=== PATIENT | male | born 1945 | race Caucasian/White ===

== ENCOUNTER 2021-02-02 11:29 | Inpatient (IN) ==
[2021-02-02] MEDS ORDERED: *HR* Propofol 200 MG/20 ML VIAL IVP ONE (11:46)
[2021-02-02] MEDS ORDERED: *HR* FentaNYL (PF) 100 MCG/2 ML VIAL ONE ×2 (11:47→13:55)
[2021-02-02] MEDS ORDERED: Clindamycin 900 MG/50 ML 900 MG/50 ML IV.SOLN IVPB ONE (11:48)
[2021-02-02] MEDS ORDERED: Lidocaine -MPF 2% 2 ML VIAL ONE (11:57)
[2021-02-02] MEDS ORDERED: *HR* Rocuronium Bromide 50 MG/5 ML VIAL ONE ×2 (11:57→14:05)
[2021-02-02] MEDS ORDERED: Ondansetron 4 MG/2 ML VIAL ONE (11:57)
[2021-02-02] MEDS ORDERED: Ringers Solution, Lactated 1,000 ML IVC SCH (12:00)
[2021-02-02] MEDS ORDERED: *HR* OxyCODONE Immed Rel 5 MG TABLET PO PRN (12:09)
[2021-02-02] MEDS ORDERED: *HR* HYDROmorphone PF 0.5 MG/0.5 ML SYRINGE IVP PRN (12:09)
[2021-02-02] MEDS ORDERED: Ondansetron 4 MG/2 ML VIAL IVP PRN ×2 (12:09→17:55)
[2021-02-02] MEDS ORDERED: Heparin 1,000 UNITS/500 mL 500 ML ONE (12:44)
[2021-02-02] MEDS ORDERED: *HR* HYDROMORPHONE 2 MG/ML VIAL ONE (14:38)
[2021-02-02] MEDS ORDERED: Sugammadex Sodium 200 MG/2 ML VIAL IV ONE (15:16)
[2021-02-02] MEDS ORDERED: Naloxone 0.4 MG/ML INJ IVP PRN (17:55)
[2021-02-02] MEDS: 0.9 % Sodium Chloride 1,000 ML IVC SCH (19:59)
[2021-02-02] MEDS: Ketorolac 15 MG/ML VIAL IVP SCH (20:07)
[2021-02-02] MEDS: Gabapentin 300 MG CAPSULE PO SCH (20:13)
[2021-02-02] MEDS: Famotidine 20 MG TABLET PO SCH (20:14)
[2021-02-02] MEDS: Sennosides/Docusate Sodium TABLET PO SCH (20:14)
[2021-02-02] MEDS: Ipratropium/Albuterol Neb 3 ML IH SCH ×2 (20:28→20:37)
[2021-02-02] MEDS: *HR* Heparin 5,000 UNIT/ML VIAL SQ SCH (21:33)
[2021-02-03] MEDS: Ketorolac 15 MG/ML VIAL IVP SCH ×4 (00:05→17:25)
[2021-02-03] MEDS: Ipratropium/Albuterol Neb 3 ML IH SCH ×6 (00:10→20:17)
[2021-02-03 02:53] LABS: Hematocrit 27.2 % (37.5-50.1); Hemoglobin 8.9 g/dL (12.9-16.9); Mean Corpuscular HGB Conc 32.7 g/dL (31.6-35.5); Mean Corpuscular Hemoglobin 33.1 pg (28.0-33.3); Mean Corpuscular Volume 101.1 fL (83.0-100.0); Mean Platelet Volume 8.5 fL (9.4-12.4); Platelet Count 148 K/mcL (140-400); Red Blood Count 2.69 M/mcL (4.19-5.50); Red Cell Distribution Width 18.1 % (11.5-14.5); White Blood Count 7.4 K/mcL (4.3-11.1)
[2021-02-03 03:12] LABS: BUN/Creatinine Ratio 25 (6-26); Blood Urea Nitrogen 26 mg/dL (8-23); Calcium 8.4 mg/dL (8.6-10.3); Carbon Dioxide 22 mEq/L (23-29); Chloride 105 mEq/L (98-107); Glucose 131 mg/dL (70-105); Iron 23 mcg/dL (65-175); Osmolality,Calculated 287 (280-300); Potassium 4.2 mEq/L (3.5-5.1); Sodium 135 mEq/L (136-145); eGFR For African Americans > 60 (> 60); eGFR For Non-African Americans > 60 (> 60)
[2021-02-03 03:58] LABS: % Iron Saturation 9 % (20-55); Transferrin 190 mg/dL (203-362)
[2021-02-03] MEDS: *HR* Heparin 5,000 UNIT/ML VIAL SQ SCH ×3 (05:32→20:03)
[2021-02-03] MEDS: Sennosides/Docusate Sodium TABLET PO SCH ×2 (07:25→20:11)
[2021-02-03] MEDS: Gabapentin 300 MG CAPSULE PO SCH ×3 (07:25→20:11)
[2021-02-03] MEDS: Famotidine 20 MG TABLET PO SCH ×2 (07:25→20:11)
[2021-02-03] MEDS: Aspirin Enteric Coated 81 MG Tablet PO SCH (07:25)
[2021-02-03] MEDS: 0.9 % Sodium Chloride 1,000 ML IVC SCH ×2 (07:26→17:25)
[2021-02-03] MEDS ORDERED: Acetaminophen 325 MG TABLET PO PRN (09:06)
[2021-02-03] MEDS ORDERED: Albumin Human 5% 12.5 GM/250 ML IV.SOLN IVPB ONE (09:07)
[2021-02-03] MEDS ORDERED: Thiamine (B-1) 100 MG, Folic Acid 1 MG in 0.9 % Sodium Chloride 50 ML IVPB ONE (09:22)
[2021-02-03] MEDS ORDERED: Folic Acid 1 MG in 0.9 % Sodium Chloride 50 ML IVPB ONE (09:22)
[2021-02-03] MEDS ORDERED: Iron Sucrose Complex 400 MG in 0.9 % Sodium Chloride 250 ML IVPB ONE (10:00)
[2021-02-03] MEDS ORDERED: DESMOPRESSIN ACETATE IVPB ONE (13:20)
[2021-02-03] MEDS ORDERED: SODIUM CHLORIDE 0.9% IVPB ONE (13:20)
[2021-02-03 13:57] LABS: Hematocrit 25.7 % (37.5-50.1); Hemoglobin 8.2 g/dL (12.9-16.9); Mean Corpuscular HGB Conc 31.9 g/dL (31.6-35.5); Mean Corpuscular Hemoglobin 33.3 pg (28.0-33.3); Mean Corpuscular Volume 104.5 fL (83.0-100.0); Mean Platelet Volume 8.7 fL (9.4-12.4); Platelet Count 167 K/mcL (140-400); Red Blood Count 2.46 M/mcL (4.19-5.50); Red Cell Distribution Width 18.4 % (11.5-14.5); White Blood Count 10.3 K/mcL (4.3-11.1)
[2021-02-03] MEDS: *HR* HYDROcodone/Acet 5/325 mg TABLET PO PRN ×2 (15:25→21:58)
[2021-02-04] MEDS: Ipratropium/Albuterol Neb 3 ML IH SCH ×6 (00:21→21:40)
[2021-02-04] MEDS: Ketorolac 15 MG/ML VIAL IVP SCH ×4 (00:33→17:20)
[2021-02-04 02:38] LABS: Hematocrit 22.7 % (37.5-50.1); Hemoglobin 7.1 g/dL (12.9-16.9); Mean Corpuscular HGB Conc 31.3 g/dL (31.6-35.5); Mean Corpuscular Hemoglobin 32.6 pg (28.0-33.3); Mean Corpuscular Volume 104.1 fL (83.0-100.0); Mean Platelet Volume 8.8 fL (9.4-12.4); Platelet Count 115 K/mcL (140-400); Red Blood Count 2.18 M/mcL (4.19-5.50); Red Cell Distribution Width 18.7 % (11.5-14.5); White Blood Count 6.4 K/mcL (4.3-11.1)
[2021-02-04 02:50] LABS: BUN/Creatinine Ratio 25 (6-26); Blood Urea Nitrogen 27 mg/dL (8-23); Calcium 7.9 mg/dL (8.6-10.3); Carbon Dioxide 22 mEq/L (23-29); Chloride 108 mEq/L (98-107); Glucose 103 mg/dL (70-105); Osmolality,Calculated 291 (280-300); Potassium 4.1 mEq/L (3.5-5.1); Sodium 138 mEq/L (136-145); eGFR For African Americans > 60 (> 60); eGFR For Non-African Americans > 60 (> 60)
[2021-02-04] MEDS: *HR* Heparin 5,000 UNIT/ML VIAL SQ SCH (05:06)
[2021-02-04] MEDS: 0.9 % Sodium Chloride 1,000 ML IVC SCH (07:30)
[2021-02-04] MEDS: Famotidine 20 MG TABLET PO SCH ×2 (07:52→20:45)
[2021-02-04] MEDS: Aspirin Enteric Coated 81 MG Tablet PO SCH (07:53)
[2021-02-04] MEDS: Sennosides/Docusate Sodium TABLET PO SCH ×2 (07:53→20:45)
[2021-02-04] MEDS: Gabapentin 300 MG CAPSULE PO SCH ×3 (07:53→20:45)
[2021-02-04] MEDS ORDERED: Ondansetron ODT 4 MG TAB.RAPDIS SL PRN (18:12)
[2021-02-04] MEDS: *HR* HYDROcodone/Acet 5/325 mg TABLET PO PRN (22:02)
[2021-02-05] MEDS: Ipratropium/Albuterol Neb 3 ML IH SCH ×4 (03:28→21:04)
[2021-02-05 03:48] LABS: Hematocrit 20.2 % (37.5-50.1); Hemoglobin 6.3 g/dL (12.9-16.9); Mean Corpuscular HGB Conc 31.2 g/dL (31.6-35.5); Mean Corpuscular Hemoglobin 32.1 pg (28.0-33.3); Mean Corpuscular Volume 103.1 fL (83.0-100.0); Mean Platelet Volume 8.6 fL (9.4-12.4); Platelet Count 114 K/mcL (140-400); Red Blood Count 1.96 M/mcL (4.19-5.50); Red Cell Distribution Width 18.7 % (11.5-14.5)
[2021-02-05 04:02] LABS: BUN/Creatinine Ratio 23 (6-26); Blood Urea Nitrogen 21 mg/dL (8-23); Calcium 7.9 mg/dL (8.6-10.3); Carbon Dioxide 23 mEq/L (23-29); Chloride 107 mEq/L (98-107); Glucose 96 mg/dL (70-105); Osmolality,Calculated 283 (280-300); Potassium 4.2 mEq/L (3.5-5.1); Sodium 135 mEq/L (136-145); eGFR For African Americans > 60 (> 60); eGFR For Non-African Americans > 60 (> 60)
[2021-02-05] MEDS: Sennosides/Docusate Sodium TABLET PO SCH ×2 (08:12→20:26)
[2021-02-05] MEDS: Gabapentin 300 MG CAPSULE PO SCH ×3 (08:13→20:26)
[2021-02-05] MEDS: Famotidine 20 MG TABLET PO SCH ×2 (08:13→20:27)
[2021-02-05] MEDS: Aspirin Enteric Coated 81 MG Tablet PO SCH ×2 (08:15→10:20)
[2021-02-05] MEDS ORDERED: 0.9 % Sodium Chloride 250 ML ONE ×2 (08:24→11:35)
[2021-02-05] MEDS ORDERED: Furosemide 20 MG TABLET PO ONE (09:11)
[2021-02-05] MEDS: Ketorolac 15 MG/ML VIAL IVP SCH ×3 (10:48→23:41)
[2021-02-05] MEDS: *HR* HYDROcodone/Acet 5/325 mg TABLET PO PRN (22:13)
[2021-02-06] MEDS: Ipratropium/Albuterol Neb 3 ML IH SCH ×4 (04:23→22:46)
[2021-02-06 04:42] LABS: Hematocrit 26.6 % (37.5-50.1); Mean Corpuscular HGB Conc 32.7 g/dL (31.6-35.5); Mean Corpuscular Hemoglobin 31.8 pg (28.0-33.3); Mean Corpuscular Volume 97.1 fL (83.0-100.0); Mean Platelet Volume 8.7 fL (9.4-12.4); Platelet Count 111 K/mcL (140-400); Red Blood Count 2.74 M/mcL (4.19-5.50); Red Cell Distribution Width 20.6 % (11.5-14.5); White Blood Count 5.4 K/mcL (4.3-11.1)
[2021-02-06 04:43] LABS: Hemoglobin 8.7 g/dL (12.9-16.9)
[2021-02-06 05:01] LABS: BUN/Creatinine Ratio 24 (6-26); Blood Urea Nitrogen 21 mg/dL (8-23); Calcium 8.2 mg/dL (8.6-10.3); Carbon Dioxide 25 mEq/L (23-29); Chloride 106 mEq/L (98-107); Glucose 101 mg/dL (70-105); Magnesium 1.9 mg/dL (1.6-2.6); Osmolality,Calculated 283 (280-300); Potassium 4.4 mEq/L (3.5-5.1); Sodium 135 mEq/L (136-145); eGFR For African Americans > 60 (> 60); eGFR For Non-African Americans > 60 (> 60)
[2021-02-06] MEDS: Ketorolac 15 MG/ML VIAL IVP SCH ×3 (05:23→17:49)
[2021-02-06] MEDS: Gabapentin 300 MG CAPSULE PO SCH ×3 (08:19→20:29)
[2021-02-06] MEDS: Aspirin Enteric Coated 81 MG Tablet PO SCH (08:19)
[2021-02-06] MEDS: Sennosides/Docusate Sodium TABLET PO SCH ×2 (08:19→20:29)
[2021-02-06] MEDS: Famotidine 20 MG TABLET PO SCH ×2 (08:19→20:29)
[2021-02-06] MEDS: *HR* HYDROcodone/Acet 5/325 mg TABLET PO PRN (22:52)
[2021-02-07] MEDS: Ketorolac 15 MG/ML VIAL IVP SCH ×4 (00:04→17:11)
[2021-02-07] MEDS: Ipratropium/Albuterol Neb 3 ML IH SCH ×4 (04:13→22:07)
[2021-02-07 07:34] LABS: BUN/Creatinine Ratio 24 (6-26); Blood Urea Nitrogen 25 mg/dL (8-23); Calcium 8.4 mg/dL (8.6-10.3); Carbon Dioxide 24 mEq/L (23-29); Chloride 107 mEq/L (98-107); Glucose 98 mg/dL (70-105); Osmolality,Calculated 286 (280-300); Potassium 4.6 mEq/L (3.5-5.1); Sodium 136 mEq/L (136-145); eGFR For African Americans > 60 (> 60); eGFR For Non-African Americans > 60 (> 60)
[2021-02-07] MEDS: Gabapentin 300 MG CAPSULE PO SCH ×3 (07:35→20:37)
[2021-02-07] MEDS: Famotidine 20 MG TABLET PO SCH ×2 (07:35→20:37)
[2021-02-07] MEDS: Sennosides/Docusate Sodium TABLET PO SCH ×2 (07:35→20:37)
[2021-02-07] MEDS: Aspirin Enteric Coated 81 MG Tablet PO SCH (07:35)
[2021-02-07 09:14] LABS: Hematocrit 30.8 % (37.5-50.1); Hemoglobin 9.8 g/dL (12.9-16.9); Mean Corpuscular HGB Conc 31.8 g/dL (31.6-35.5); Mean Corpuscular Hemoglobin 31.9 pg (28.0-33.3); Mean Corpuscular Volume 100.3 fL (83.0-100.0); Mean Platelet Volume 8.7 fL (9.4-12.4); Platelet Count 136 K/mcL (140-400); Red Blood Count 3.07 M/mcL (4.19-5.50); Red Cell Distribution Width 20.4 % (11.5-14.5); White Blood Count 5.8 K/mcL (4.3-11.1)
[2021-02-07] MEDS: *HR* HYDROcodone/Acet 5/325 mg TABLET PO PRN (22:22)
[2021-02-08] MEDS: Ipratropium/Albuterol Neb 3 ML IH SCH ×2 (03:51→09:55)
[2021-02-08 05:29] LABS: Hematocrit 30.7 % (37.5-50.1); Hemoglobin 9.9 g/dL (12.9-16.9); Mean Corpuscular HGB Conc 32.2 g/dL (31.6-35.5); Mean Corpuscular Hemoglobin 31.9 pg (28.0-33.3); Mean Platelet Volume 8.7 fL (9.4-12.4); Platelet Count 144 K/mcL (140-400); White Blood Count 6.6 K/mcL (4.3-11.1)
[2021-02-08 05:48] LABS: BUN/Creatinine Ratio 27 (6-26); Blood Urea Nitrogen 25 mg/dL (8-23); Calcium 8.5 mg/dL (8.6-10.3); Carbon Dioxide 24 mEq/L (23-29); Chloride 105 mEq/L (98-107); Glucose 96 mg/dL (70-105); Magnesium 1.9 mg/dL (1.6-2.6); Osmolality,Calculated 286 (280-300); Potassium 4.3 mEq/L (3.5-5.1); Sodium 136 mEq/L (136-145); eGFR For African Americans > 60 (> 60); eGFR For Non-African Americans > 60 (> 60)
[2021-02-08] MEDS: Famotidine 20 MG TABLET PO SCH (08:38)
[2021-02-08] MEDS: Sennosides/Docusate Sodium TABLET PO SCH (08:38)
[2021-02-08] MEDS: Aspirin Enteric Coated 81 MG Tablet PO SCH (08:38)
[2021-02-08] MEDS: Gabapentin 300 MG CAPSULE PO SCH (08:39)
[2021-02-08 11:54] VITALS: TEMP 97.8
[2021-02-08 12:19] VITALS: BP 109/70; PULSE 98; O2SAT 99
== END 2021-02-08 13:07 | disposition home or self-care (01) | DRG 164 ==
LOC: SAMDAY 11:29 → 2NNU 12:20
PROVIDERS: ADMIT Thoracic Surgery (Cardiothoracic Vascular Surgery); ATTEND Thoracic Surgery (Cardiothoracic Vascular Surgery)

== ENCOUNTER 2021-09-06 08:45 | Inpatient (IN) ==
[2021-09-06] MEDS ORDERED: Albuterol 2.5 MG/3 ML NEBULIZER IH ONE (09:31)
[2021-09-06] MEDS ORDERED: Ipratropium/Albuterol Neb 3 ML IH ONE (09:31)
[2021-09-06 10:10] LABS: Basophils % 0.3 %; Eosinophils % 0.3 %; Hematocrit 34.5 % (37.5-50.1); Hemoglobin 10.9 g/dL (12.9-16.9); Immature Granulocytes % 0.5 % (0-4); Lymphocytes # 0.5 K/mcL (0.6-4.6); Lymphocytes % 4.1 %; Mean Corpuscular HGB Conc 31.6 g/dL (31.6-35.5); Mean Platelet Volume 8.1 fL (9.4-12.4); Monocytes # 0.5 K/mcL (0.0-1.3); Monocytes % 4.4 %; Neutrophils # 9.9 K/mcL (1.6-8.9); Platelet Count 267 K/mcL (140-400); Red Blood Count 3.63 M/mcL (4.19-5.50); Red Cell Distribution Width 14.1 % (11.5-14.5); Segmented Neutrophils % 90.4 %
[2021-09-06 10:12] LABS: VBG HCO3 26 mEq/L (21-27); VBG PCO2 41 mmHg (41-51); VBG PH 7.41 pH Units (7.32-7.42); VBG PO2 29 mmHg (25-50)
[2021-09-06 10:18] LABS: Troponin I 0.05 ng/mL (< 0.04)
[2021-09-06 10:34] LABS: BUN/Creatinine Ratio 17 (6-26); Blood Urea Nitrogen 15 mg/dL (8-23); Calcium 8.4 mg/dL (8.6-10.3); Carbon Dioxide 28 mEq/L (23-29); Chloride 98 mEq/L (98-107); Glucose 96 mg/dL (70-105); Osmolality,Calculated 281 (280-300); Potassium 4.1 mEq/L (3.5-5.1); Sodium 135 mEq/L (136-145); eGFR For African Americans > 60 (> 60); eGFR For Non-African Americans > 60 (> 60)
[2021-09-06] MEDS ORDERED: Ondansetron 4 MG/2 ML VIAL IVP PRN (11:39)
[2021-09-06] MEDS: Megestrol Acetate 400 MG/10 ML UDC PO SCH (13:12)
[2021-09-06] MEDS: 0.9 % Sodium Chloride 1,000 ML IVC SCH (13:12)
[2021-09-06] MEDS: Sennosides/Docusate Sodium TABLET PO SCH (19:48)
[2021-09-06] MEDS: Melatonin 3 MG TABLET PO SCH (22:25)
[2021-09-06] MEDS: Famotidine 20 MG TABLET PO SCH (22:25)
[2021-09-07 02:21] LABS: Hematocrit 31.7 % (37.5-50.1); Hemoglobin 9.8 g/dL (12.9-16.9); Mean Corpuscular HGB Conc 30.9 g/dL (31.6-35.5); Mean Corpuscular Hemoglobin 29.4 pg (28.0-33.3); Mean Corpuscular Volume 95.2 fL (83.0-100.0); Mean Platelet Volume 8.4 fL (9.4-12.4); Platelet Count 237 K/mcL (140-400); Red Blood Count 3.33 M/mcL (4.19-5.50); Red Cell Distribution Width 14.4 % (11.5-14.5); White Blood Count 8.4 K/mcL (4.3-11.1)
[2021-09-07 02:43] LABS: BUN/Creatinine Ratio 16 (6-26); Blood Urea Nitrogen 16 mg/dL (8-23); Calcium 8.2 mg/dL (8.6-10.3); Carbon Dioxide 27 mEq/L (23-29); Chloride 102 mEq/L (98-107); Glucose 108 mg/dL (70-105); Magnesium 2.1 mg/dL (1.6-2.6); Osmolality,Calculated 284 (280-300); Potassium 3.6 mEq/L (3.5-5.1); Sodium 136 mEq/L (136-145); eGFR For African Americans > 60 (> 60); eGFR For Non-African Americans > 60 (> 60)
[2021-09-07] MEDS: 0.9 % Sodium Chloride 1,000 ML IVC SCH ×2 (03:04→18:06)
[2021-09-07] MEDS ORDERED: Perflutren Lipid Microsphere 1.3 ML in 0.9 % Sodium Chloride 8.7 ML IVP PRN (08:11)
[2021-09-07] MEDS: Famotidine 20 MG TABLET PO SCH ×2 (08:54→19:52)
[2021-09-07] MEDS: Megestrol Acetate 400 MG/10 ML UDC PO SCH (08:54)
[2021-09-07] MEDS: Sennosides/Docusate Sodium TABLET PO SCH ×2 (08:55→19:52)
[2021-09-07] MEDS: *HR* HYDROcodone/Acet 5/325 mg TABLET PO PRN ×3 (11:56→22:43)
[2021-09-07] MEDS: Metoprolol XL (24 HR) Succ 25 MG TAB.ER.24H PO SCH (19:52)
[2021-09-07] MEDS: Melatonin 3 MG TABLET PO SCH (19:52)
[2021-09-08] MEDS ORDERED: Regadenoson 0.4 MG/5 ML SYRINGE IVP ONE (06:03)
[2021-09-08] MEDS ORDERED: *HR* Propofol 200 MG/20 ML VIAL IVP ONE (08:52)
[2021-09-08] MEDS ORDERED: *HR* Succinylcholine 200 MG/10 ML VIAL IVP ONE (08:52)
[2021-09-08] MEDS ORDERED: Lidocaine -MPF 2% 5 ML VIAL ONE (08:52)
[2021-09-08] MEDS ORDERED: Ondansetron 4 MG/2 ML VIAL ONE (08:52)
[2021-09-08] MEDS ORDERED: Lidocaine -MPF 4% 5 ML AMPUL ONE (08:52)
[2021-09-08] MEDS ORDERED: Lidocaine Jelly 11 ml Syringe ONE (09:04)
[2021-09-08] MEDS ORDERED: *HR* Norepinephrine 4 MG/4 ML VIAL IVC ONE (09:04)
[2021-09-08] MEDS ORDERED: *HR* Vasopressin 20 UNIT/ML VIAL ONE (09:04)
[2021-09-08] MEDS ORDERED: *HR* FentaNYL (PF) 100 MCG/2 ML VIAL IVP PRN (10:01)
[2021-09-08] MEDS ORDERED: *HR* Remifentanil 1 MG VIAL IVP ONE (10:03)
[2021-09-08] MEDS ORDERED: *HR* FentaNYL (PF) 100 MCG/2 ML VIAL ONE ×2 (10:09→11:53)
[2021-09-08] MEDS: Famotidine 20 MG TABLET PO SCH ×2 (11:32→20:30)
[2021-09-08] MEDS: Megestrol Acetate 400 MG/10 ML UDC PO SCH (11:32)
[2021-09-08] MEDS: Metoprolol XL (24 HR) Succ 25 MG TAB.ER.24H PO SCH ×2 (11:35→20:30)
[2021-09-08] MEDS: 0.9 % Sodium Chloride 1,000 ML IVC SCH ×2 (11:36→18:29)
[2021-09-08] MEDS: Sennosides/Docusate Sodium TABLET PO SCH ×2 (11:36→20:30)
[2021-09-08] MEDS ORDERED: Nitroglycerin 1,000 MCG/5 ML VIAL IV ONE (11:45)
[2021-09-08] MEDS ORDERED: ISOVUE-370 200 ML INFUS..BTL ONE (11:45)
[2021-09-08] MEDS ORDERED: *HR* Heparin 10,000 UNIT/10 ML VIAL ONE (11:45)
[2021-09-08] MEDS ORDERED: Heparin 1,000 UNITS/500 mL 500 ML ONE (11:45)
[2021-09-08] MEDS ORDERED: 0.9 % Sodium Chloride 1,000 ML ONE ×2 (11:45→11:55)
[2021-09-08] MEDS ORDERED: *HR* Midazolam HCl 2 MG/2 ML VIAL ONE (11:53)
[2021-09-08 16:31] LABS: Basophils % 0.2 %; Eosinophils % 1.4 %; Hematocrit 31.4 % (37.5-50.1); Hemoglobin 9.7 g/dL (12.9-16.9); Immature Granulocytes % 0.5 % (0-4); Lymphocytes % 7.4 %; Mean Corpuscular HGB Conc 30.9 g/dL (31.6-35.5); Mean Corpuscular Hemoglobin 29.8 pg (28.0-33.3); Mean Corpuscular Volume 96.6 fL (83.0-100.0); Mean Platelet Volume 8.2 fL (9.4-12.4); Monocytes % 4.5 %; Platelet Count 241 K/mcL (140-400); Red Blood Count 3.25 M/mcL (4.19-5.50); Red Cell Distribution Width 14.5 % (11.5-14.5); White Blood Count 8.7 K/mcL (4.3-11.1)
[2021-09-08 16:32] LABS: Eosinophils # 0.1 K/mcL (0.0-0.6); Lymphocytes # 0.6 K/mcL (0.6-4.6); Monocytes # 0.4 K/mcL (0.0-1.3); Neutrophils # 7.5 K/mcL (1.6-8.9)
[2021-09-08 16:45] LABS: INR 1.5; Prothrombin Time 16.2 Seconds (9.4-12.1)
[2021-09-08 16:48] LABS: Activated Partial Thrombo Time 32.3 Seconds (26.0-36.0)
[2021-09-08 16:54] LABS: Estimated Average Glucose 126 mg/dl
[2021-09-08 16:56] LABS: BUN/Creatinine Ratio 16 (6-26); Blood Urea Nitrogen 10 mg/dL (8-23); Calcium 8.5 mg/dL (8.6-10.3); Carbon Dioxide 25 mEq/L (23-29); Chloride 106 mEq/L (98-107); Cholesterol 99 mg/dL (< 200); Glucose 89 mg/dL (70-105); HDL Cholesterol 25 mg/dL (40-59); LDL Cholesterol,Calculated 57 mg/dL (< 100); Osmolality,Calculated 287 (280-300); Potassium 3.9 mEq/L (3.5-5.1); Sodium 139 mEq/L (136-145); Triglycerides 86 mg/dL (< 150); eGFR For African Americans > 60 (> 60); eGFR For Non-African Americans > 60 (> 60)
[2021-09-08] MEDS: *HR* HYDROcodone/Acet 5/325 mg TABLET PO PRN (20:29)
[2021-09-08] MEDS: Chlorhexidine Rinse 15 ML MOUTHWASH MM SCH (20:30)
[2021-09-08] MEDS: Melatonin 3 MG TABLET PO SCH (20:30)
[2021-09-09] MEDS: 0.9 % Sodium Chloride 1,000 ML IVC SCH ×2 (01:37→16:58)
[2021-09-09] MEDS: Chlorhexidine Rinse 15 ML MOUTHWASH MM SCH (05:09)
[2021-09-09] MEDS ORDERED: CeFAZolin Syr 2,000MG/20 ML 2,000 MG/20 ML SYRINGE IVPB ONE (06:00)
[2021-09-09] MEDS ORDERED: Aspirin 81 MG TAB.CHEW PO ONE (06:00)
[2021-09-09] MEDS ORDERED: *HR* Vasopressin 20 UNIT/ML VIAL ONE (06:49)
[2021-09-09] MEDS ORDERED: NiCARdipine 2.5 MG/10 ML Syringe IVPB ONE (06:49)
[2021-09-09] MEDS ORDERED: Papaverine 60 MG/2 ML VIAL IVP ONE (06:53)
[2021-09-09] MEDS ORDERED: *HR* Midazolam HCl 5 MG/5 ML VIAL IVP ONE (06:57)
[2021-09-09] MEDS ORDERED: *HR* FentaNYL (PF) 1,000 MCG/20 ML VIAL ONE (06:57)
[2021-09-09] MEDS ORDERED: Albumin Human 5% 0 GM/0 ML IV.SOLN ONE (06:58)
[2021-09-09] MEDS ORDERED: Tranexamic Acid 1,000 MG/10 ML VIAL ONE (06:58)
[2021-09-09] MEDS ORDERED: *HR* Rocuronium Bromide 50 MG/5 ML VIAL ONE (06:58)
[2021-09-09] MEDS ORDERED: *HR* Norepinephrine 4 MG/4 ML VIAL IVC ONE (06:58)
[2021-09-09] MEDS ORDERED: Protamine Sulfate 250 MG/25 ML VIAL IVP ONE (06:58)
[2021-09-09] MEDS ORDERED: DOBUTamine 1,000 MG/250 ML BAG IVC SCH (07:00)
[2021-09-09] MEDS ORDERED: *HR* Magnesium Sulfate 1 GM/2 ML VIAL ONE (07:04)
[2021-09-09] MEDS ORDERED: *HR* EPINEPHrine 1 MG/10 ML SYRINGE ONE (07:05)
[2021-09-09] MEDS ORDERED: Lidocaine -MPF 2% 2 ML VIAL ONE (07:13)
[2021-09-09] MEDS ORDERED: *HR* Propofol 200 MG/20 ML VIAL IVP ONE (07:23)
[2021-09-09] MEDS ORDERED: Famotidine 20 MG/2 ML VIAL ONE (07:25)
[2021-09-09] MEDS ORDERED: Heparin 15,000 UNIT in 0.9 % Sodium Chloride 500 ML IV ONE (07:45)
[2021-09-09] MEDS ORDERED: Norepinephrine 4 MG in 0.9 % Sodium Chloride 250 ML IVC PRN (07:45)
[2021-09-09] MEDS ORDERED: del Nido Cardioplegia Solution PF ONE (08:00)
[2021-09-09] MEDS ORDERED: Buckersberg's Blood Cardioplegia PF SCH (08:00)
[2021-09-09] MEDS ORDERED: Clindamycin 900 MG/50 ML 900 MG/50 ML IV.SOLN IVPB ONE ×2 (08:31→09:36)
[2021-09-09 10:11] LABS: ABG Base Excess -7 mEq/L (-2 to 3); ABG Chloride 107 mEq/L (98-107); ABG Glucose 82 mg/dL (60-95); ABG HCO3 19 mEq/L (21-27); ABG Ionized Calcium 1.26 mmol/L (1.15-1.35); ABG Oxygen Saturation 100 % (95-98); ABG PCO2 35 mmHg (35-45); ABG PH 7.33 pH Units (7.32-7.45); ABG PO2 458 mmHg (85-104); ABG TCO2 20 mEq/L (20-26)
[2021-09-09] MEDS ORDERED: Ketamine HCL *QUVA* 50mg (1mL) SYRINGE ONE (10:31)
[2021-09-09] MEDS ORDERED: Ondansetron 4 MG/2 ML VIAL ONE (10:59)
[2021-09-09] MEDS ORDERED: Acetaminophen IV 1,000 MG/100 ML BAG IVPB ONE ×2 (10:59→11:01)
[2021-09-09] MEDS ORDERED: *HR* HYDROMORPHONE 2 MG/ML VIAL ONE (11:38)
[2021-09-09] MEDS ORDERED: Sugammadex Sodium 200 MG/2 ML VIAL IV ONE (12:36)
[2021-09-09] MEDS ORDERED: Naloxone 0.4 MG/ML INJ ONE (12:40)
[2021-09-09] MEDS ORDERED: Azithromycin 500 MG in 0.9 % Sodium Chloride 250 ML IVPB SCH (13:57)
[2021-09-09] MEDS ORDERED: Naloxone 0.4 MG/ML INJ IVP PRN (13:59)
[2021-09-09] MEDS ORDERED: *HR* HYDROcodone/Acet 5/325 mg TABLET PO PRN (13:59)
[2021-09-09] MEDS ORDERED: Ondansetron 4 MG/2 ML VIAL IVP PRN (13:59)
[2021-09-09] MEDS ORDERED: 0.9 % Sodium Chloride 1,000 ML IVC SCH (14:00)
[2021-09-09] MEDS: *HR* Heparin 5,000 UNIT/ML VIAL SQ SCH ×2 (14:55→21:09)
[2021-09-09] MEDS ORDERED: *HR* HYDROmorphone (PF) 1 MG/ML SYRINGE IVP ONE (16:29)
[2021-09-09] MEDS ORDERED: Albumin Human 5% 12.5 GM/250 ML IV.SOLN IVPB ONE (16:29)
[2021-09-09] MEDS: Ipratropium/Albuterol Neb 3 ML IH SCH ×3 (16:30→23:48)
[2021-09-09] MEDS: Fluconazole 200 MG/100 ML 100 MG/50 ML BAG IVPB SCH (16:54)
[2021-09-09] MEDS: Gabapentin 300 MG CAPSULE PO SCH ×2 (16:58→21:09)
[2021-09-09] MEDS: Sennosides/Docusate Sodium TABLET PO SCH (21:09)
[2021-09-09] MEDS: Famotidine 20 MG TABLET PO SCH (21:09)
[2021-09-10] MEDS: 0.9 % Sodium Chloride 1,000 ML IVC SCH (02:43)
[2021-09-10 03:46] LABS: Hematocrit 27.1 % (37.5-50.1); Hemoglobin 8.4 g/dL (12.9-16.9); Mean Corpuscular Hemoglobin 30.2 pg (28.0-33.3); Mean Corpuscular Volume 97.5 fL (83.0-100.0); Mean Platelet Volume 8.4 fL (9.4-12.4); Platelet Count 224 K/mcL (140-400); Red Blood Count 2.78 M/mcL (4.19-5.50); Red Cell Distribution Width 14.7 % (11.5-14.5)
[2021-09-10 03:47] LABS: White Blood Count 14.7 K/mcL (4.3-11.1)
[2021-09-10] MEDS: Ipratropium/Albuterol Neb 3 ML IH SCH ×4 (03:56→20:16)
[2021-09-10 04:05] LABS: BUN/Creatinine Ratio 19 (6-26); Blood Urea Nitrogen 12 mg/dL (8-23); Calcium 8.3 mg/dL (8.6-10.3); Carbon Dioxide 22 mEq/L (23-29); Chloride 105 mEq/L (98-107); Glucose 109 mg/dL (70-105); Magnesium 2.1 mg/dL (1.6-2.6); Osmolality,Calculated 282 (280-300); Potassium 4.3 mEq/L (3.5-5.1); Sodium 136 mEq/L (136-145); eGFR For African Americans > 60 (> 60); eGFR For Non-African Americans > 60 (> 60)
[2021-09-10] MEDS: *HR* Heparin 5,000 UNIT/ML VIAL SQ SCH ×3 (05:14→21:07)
[2021-09-10] MEDS: Famotidine 20 MG TABLET PO SCH ×3 (08:14→17:39)
[2021-09-10] MEDS: Gabapentin 300 MG CAPSULE PO SCH ×3 (08:14→20:42)
[2021-09-10] MEDS: Sennosides/Docusate Sodium TABLET PO SCH ×3 (08:15→21:06)
[2021-09-10] MEDS ORDERED: Acetylcysteine 10% 2 ML INHSOL IH SCH (09:15)
[2021-09-10] MEDS: Fluconazole 200 MG/100 ML 100 MG/50 ML BAG IVPB SCH (09:27)
[2021-09-10] MEDS ORDERED: Ipratropium/Albuterol Neb 3 ML IH SCH (10:00)
[2021-09-10] MEDS ORDERED: Naloxone 0.4 MG/ML INJ IVP PRN (13:42)
[2021-09-10] MEDS ORDERED: Ondansetron 4 MG/2 ML VIAL IVP PRN (13:42)
[2021-09-10] MEDS ORDERED: Azithromycin 500 MG in 0.9 % Sodium Chloride 250 ML IVPB SCH (15:00)
[2021-09-10] MEDS: Megestrol Acetate 400 MG/10 ML UDC PO SCH (15:32)
[2021-09-10] MEDS: Metoprolol XL (24 HR) Succ 25 MG TAB.ER.24H PO SCH ×2 (15:32→17:40)
[2021-09-10] MEDS: Acetylcysteine 10% 2 ML INHSOL IH SCH ×2 (16:09→20:17)
[2021-09-10] MEDS: levoFLOXacin 750 MG/150 ML 750 MG/150 ML BAG IVPB SCH (17:40)
[2021-09-10] MEDS: metroNIDAZOLE 500 MG TABLET PO SCH (21:06)
[2021-09-10] MEDS: *HR* HYDROcodone/Acet 5/325 mg TABLET PO PRN (21:28)
[2021-09-11] MEDS: Acetylcysteine 10% 2 ML INHSOL IH SCH ×4 (03:43→19:57)
[2021-09-11] MEDS: Ipratropium/Albuterol Neb 3 ML IH SCH ×4 (03:44→19:58)
[2021-09-11] MEDS: *HR* HYDROcodone/Acet 5/325 mg TABLET PO PRN (05:14)
[2021-09-11] MEDS: *HR* Heparin 5,000 UNIT/ML VIAL SQ SCH ×3 (05:20→21:32)
[2021-09-11 06:50] LABS: Hematocrit 27.4 % (37.5-50.1); Hemoglobin 8.5 g/dL (12.9-16.9); Mean Corpuscular Hemoglobin 30.1 pg (28.0-33.3); Mean Corpuscular Volume 97.2 fL (83.0-100.0); Mean Platelet Volume 8.7 fL (9.4-12.4); Platelet Count 232 K/mcL (140-400); Red Blood Count 2.82 M/mcL (4.19-5.50); Red Cell Distribution Width 15.3 % (11.5-14.5); White Blood Count 12.4 K/mcL (4.3-11.1)
[2021-09-11 07:09] LABS: BUN/Creatinine Ratio 16 (6-26); Blood Urea Nitrogen 11 mg/dL (8-23); Calcium 8.4 mg/dL (8.6-10.3); Carbon Dioxide 24 mEq/L (23-29); Chloride 104 mEq/L (98-107); Glucose 91 mg/dL (70-105); Osmolality,Calculated 281 (280-300); Potassium 4.1 mEq/L (3.5-5.1); Sodium 136 mEq/L (136-145); eGFR For African Americans > 60 (> 60); eGFR For Non-African Americans > 60 (> 60)
[2021-09-11] MEDS: Gabapentin 300 MG CAPSULE PO SCH ×3 (08:58→21:32)
[2021-09-11] MEDS: Famotidine 20 MG TABLET PO SCH ×2 (08:58→15:09)
[2021-09-11] MEDS: metroNIDAZOLE 500 MG TABLET PO SCH ×3 (08:58→21:32)
[2021-09-11] MEDS: Metoprolol XL (24 HR) Succ 25 MG TAB.ER.24H PO SCH (08:58)
[2021-09-11] MEDS: Aspirin Enteric Coated 81 MG Tablet PO SCH (08:58)
[2021-09-11] MEDS: Sennosides/Docusate Sodium TABLET PO SCH ×2 (08:58→21:32)
[2021-09-11] MEDS ORDERED: Fluconazole 200 MG/100 ML 100 MG/50 ML BAG IVPB SCH (09:00)
[2021-09-11] MEDS: levoFLOXacin 750 MG/150 ML 750 MG/150 ML BAG IVPB SCH (15:09)
[2021-09-12 03:26] LABS: Hematocrit 28.7 % (37.5-50.1); Hemoglobin 9.1 g/dL (12.9-16.9); Mean Corpuscular HGB Conc 31.7 g/dL (31.6-35.5); Mean Corpuscular Hemoglobin 30.2 pg (28.0-33.3); Mean Corpuscular Volume 95.3 fL (83.0-100.0); Mean Platelet Volume 8.4 fL (9.4-12.4); Platelet Count 264 K/mcL (140-400); Red Blood Count 3.01 M/mcL (4.19-5.50); Red Cell Distribution Width 15.6 % (11.5-14.5); White Blood Count 10.4 K/mcL (4.3-11.1)
[2021-09-12 03:44] LABS: BUN/Creatinine Ratio 13 (6-26); Blood Urea Nitrogen 10 mg/dL (8-23); Calcium 8.6 mg/dL (8.6-10.3); Carbon Dioxide 26 mEq/L (23-29); Chloride 102 mEq/L (98-107); Glucose 93 mg/dL (70-105); Osmolality,Calculated 279 (280-300); Sodium 135 mEq/L (136-145); eGFR For African Americans > 60 (> 60); eGFR For Non-African Americans > 60 (> 60)
[2021-09-12] MEDS: Ipratropium/Albuterol Neb 3 ML IH SCH ×4 (04:20→20:51)
[2021-09-12] MEDS: Acetylcysteine 10% 2 ML INHSOL IH SCH ×4 (04:20→20:51)
[2021-09-12] MEDS: *HR* HYDROcodone/Acet 5/325 mg TABLET PO PRN ×2 (04:29→23:14)
[2021-09-12] MEDS: *HR* Heparin 5,000 UNIT/ML VIAL SQ SCH ×3 (06:46→20:09)
[2021-09-12] MEDS: Famotidine 20 MG TABLET PO SCH ×2 (08:10→16:24)
[2021-09-12] MEDS: Sennosides/Docusate Sodium TABLET PO SCH ×2 (08:10→20:09)
[2021-09-12] MEDS: Metoprolol XL (24 HR) Succ 25 MG TAB.ER.24H PO SCH (08:10)
[2021-09-12] MEDS: Gabapentin 300 MG CAPSULE PO SCH ×3 (08:10→20:09)
[2021-09-12] MEDS: Aspirin Enteric Coated 81 MG Tablet PO SCH (08:10)
[2021-09-12] MEDS: metroNIDAZOLE 500 MG TABLET PO SCH ×3 (08:14→20:09)
[2021-09-12] MEDS: levoFLOXacin 750 MG/150 ML 750 MG/150 ML BAG IVPB SCH (16:25)
[2021-09-13] MEDS: Ipratropium/Albuterol Neb 3 ML IH SCH ×4 (04:25→20:04)
[2021-09-13] MEDS: Acetylcysteine 10% 2 ML INHSOL IH SCH ×4 (04:26→20:05)
[2021-09-13] MEDS: *HR* Heparin 5,000 UNIT/ML VIAL SQ SCH ×3 (05:09→20:45)
[2021-09-13] MEDS: Famotidine 20 MG TABLET PO SCH ×2 (08:44→15:47)
[2021-09-13] MEDS: Sennosides/Docusate Sodium TABLET PO SCH ×2 (08:44→20:45)
[2021-09-13] MEDS: Metoprolol XL (24 HR) Succ 25 MG TAB.ER.24H PO SCH (08:44)
[2021-09-13] MEDS: Gabapentin 300 MG CAPSULE PO SCH ×3 (08:44→20:44)
[2021-09-13] MEDS: *HR* HYDROcodone/Acet 5/325 mg TABLET PO PRN ×3 (08:45→22:24)
[2021-09-13] MEDS: metroNIDAZOLE 500 MG TABLET PO SCH ×3 (08:45→20:44)
[2021-09-13] MEDS: Aspirin Enteric Coated 81 MG Tablet PO SCH (08:45)
[2021-09-13] MEDS: levoFLOXacin 750 MG/150 ML 750 MG/150 ML BAG IVPB SCH (18:23)
[2021-09-14] MEDS: Ipratropium/Albuterol Neb 3 ML IH SCH ×4 (03:40→20:33)
[2021-09-14] MEDS: Acetylcysteine 10% 2 ML INHSOL IH SCH ×4 (03:40→20:33)
[2021-09-14 04:36] LABS: Hematocrit 27.3 % (37.5-50.1); Hemoglobin 8.9 g/dL (12.9-16.9); Mean Corpuscular HGB Conc 32.6 g/dL (31.6-35.5); Mean Corpuscular Hemoglobin 30.2 pg (28.0-33.3); Mean Corpuscular Volume 92.5 fL (83.0-100.0); Mean Platelet Volume 8.1 fL (9.4-12.4); Platelet Count 261 K/mcL (140-400); Red Blood Count 2.95 M/mcL (4.19-5.50); Red Cell Distribution Width 15.9 % (11.5-14.5)
[2021-09-14] MEDS: *HR* HYDROcodone/Acet 5/325 mg TABLET PO PRN ×4 (04:38→20:46)
[2021-09-14] MEDS: *HR* Heparin 5,000 UNIT/ML VIAL SQ SCH ×3 (04:39→20:43)
[2021-09-14 04:55] LABS: BUN/Creatinine Ratio 21 (6-26); Blood Urea Nitrogen 17 mg/dL (8-23); Calcium 8.3 mg/dL (8.6-10.3); Carbon Dioxide 23 mEq/L (23-29); Chloride 103 mEq/L (98-107); Glucose 103 mg/dL (70-105); Osmolality,Calculated 280 (280-300); Potassium 3.8 mEq/L (3.5-5.1); Sodium 134 mEq/L (136-145); eGFR For African Americans > 60 (> 60); eGFR For Non-African Americans > 60 (> 60)
[2021-09-14] MEDS: metroNIDAZOLE 500 MG TABLET PO SCH ×3 (09:19→20:43)
[2021-09-14] MEDS: Gabapentin 300 MG CAPSULE PO SCH ×3 (09:19→20:43)
[2021-09-14] MEDS: Metoprolol XL (24 HR) Succ 25 MG TAB.ER.24H PO SCH (09:20)
[2021-09-14] MEDS: Aspirin Enteric Coated 81 MG Tablet PO SCH (09:20)
[2021-09-14] MEDS: Sennosides/Docusate Sodium TABLET PO SCH ×2 (09:20→20:43)
[2021-09-14] MEDS: Famotidine 20 MG TABLET PO SCH ×2 (09:22→16:38)
[2021-09-14] MEDS: Doxycycline 100 MG CAPSULE PO SCH (16:38)
[2021-09-15 03:49] VITALS: PULSE 101
[2021-09-15] MEDS: Ipratropium/Albuterol Neb 3 ML IH SCH ×2 (03:55→07:46)
[2021-09-15] MEDS: Acetylcysteine 10% 2 ML INHSOL IH SCH ×2 (03:55→07:46)
[2021-09-15] MEDS: *HR* Heparin 5,000 UNIT/ML VIAL SQ SCH (06:25)
[2021-09-15 07:55] VITALS: TEMP 98.8
[2021-09-15] MEDS: Aspirin Enteric Coated 81 MG Tablet PO SCH (08:32)
[2021-09-15] MEDS: Doxycycline 100 MG CAPSULE PO SCH (08:33)
[2021-09-15] MEDS: Sennosides/Docusate Sodium TABLET PO SCH (08:33)
[2021-09-15] MEDS: Gabapentin 300 MG CAPSULE PO SCH (08:33)
[2021-09-15] MEDS: metroNIDAZOLE 500 MG TABLET PO SCH (08:33)
[2021-09-15] MEDS: Famotidine 20 MG TABLET PO SCH (08:33)
[2021-09-15] MEDS: Metoprolol XL (24 HR) Succ 25 MG TAB.ER.24H PO SCH (08:35)
[2021-09-15 10:25] VITALS: BP 114/52; O2SAT 99
== END 2021-09-15 11:15 | disposition home health service (06) | DRG 163 ==
LOC: 2NENU 08:45 → EMEROOARM 08:45 → 2NENU 12:37 → ICNU 09-09 09:42 → 2NNU 09-10 13:33
PROVIDERS: ADMIT Thoracic Surgery (Cardiothoracic Vascular Surgery); ATTEND Thoracic Surgery (Cardiothoracic Vascular Surgery)

== ENCOUNTER 2022-01-21 12:48 | Inpatient (IN) ==
[2022-01-21] MEDS ORDERED: 0.9 % Sodium Chloride 1,000 ML IVC ONE (13:01)
[2022-01-21] MEDS ORDERED: cefTRIAXone 1,000 MG in 0.9 % Sodium Chloride 10 ML IVP ONE (13:02)
[2022-01-21 13:15] LABS: ABG Base Excess -5 mEq/L (-2 to 3); ABG HCO3 16 mEq/L (21-27); ABG Oxygen Saturation 95 % (95-98); ABG PCO2 19 mmHg (35-45); ABG PH 7.53 pH Units (7.32-7.45); ABG PO2 62 mmHg (85-104); ABG TCO2 17 mEq/L (20-26)
[2022-01-21 13:30] LABS: Hemoglobin 10.9 g/dL (12.9-16.9)
[2022-01-21 13:32] LABS: Hematocrit 35.3 % (37.5-50.1); Immature Platelets 5.8 % (1.1-6.1); Mean Corpuscular HGB Conc 30.9 g/dL (31.6-35.5); Mean Corpuscular Hemoglobin 32.9 pg (28.0-33.3); Mean Corpuscular Volume 106.6 fL (83.0-100.0); Mean Platelet Volume 10.4 fL (9.4-12.4); Nucleated Red Blood Cells 1.6 /100 WBC (0); Red Blood Count 3.31 M/mcL (4.19-5.50); Red Cell Distribution Width 14.2 % (11.5-14.5); White Blood Count 4.3 K/mcL (4.3-11.1)
[2022-01-21 13:41] LABS: INR 2.5
[2022-01-21 13:44] LABS: Activated Partial Thrombo Time 27.8 Seconds (26.0-36.0)
[2022-01-21 13:55] LABS: Alanine Aminotransferase 38 Units/L (7-52); Albumin 3.1 g/dL (3.5-5.7); Albumin/Globulin Ratio 0.8 (1.1-2.2); Alkaline Phosphatase 152 Units/L (34-104); Aspartate Amino Transferase 50 Units/L (13-39); BUN/Creatinine Ratio 33 (6-26); Bilirubin,Direct 0.5 mg/dL (0.0-0.2); Bilirubin,Indirect 1.1 mg/dL (0.0-1.0); Bilirubin,Total 1.6 mg/dL (0.3-1.0); Blood Urea Nitrogen 38 mg/dL (8-23); Calcium 9.4 mg/dL (8.6-10.3); Carbon Dioxide 20 mEq/L (23-29); Chloride 97 mEq/L (98-107); Creatine Kinase 20 Units/L (30-223); Glucose 105 mg/dL (70-105); Lipase 86 Units/L (11-82); Magnesium 2.3 mg/dL (1.6-2.6); Osmolality,Calculated 291 (280-300); Platelet Count 49 K/mcL (140-400); Potassium 5.2 mEq/L (3.5-5.1); Sodium 136 mEq/L (136-145); Total Protein 7.1 g/dL (6.4-8.9); Troponin I 0.04 ng/mL (< 0.04); eGFR For African Americans > 60 (> 60); eGFR For Non-African Americans > 60 (> 60)
[2022-01-21 13:58] LABS: Lymphocytes # 1.1 K/mcL (0.6-4.6); Monocytes # 0.3 K/mcL (0.0-1.3); Neutrophils # 2.9 K/mcL (1.6-8.9)
[2022-01-21 13:59] LABS: Large Platelets Present (Not Present); Platelet Estimate Marked Decrease (Normal)
[2022-01-21] MEDS ORDERED: 0.9 % Sodium Chloride 1,000 ML IV ONE ×2 (14:14→16:27)
[2022-01-21 14:41] LABS: Influenza A PCR Negative (Negative); Influenza B PCR Negative (Negative); Resp. Syncytial Virus PCR Negative (Negative); SARS-CoV-2 by PCR (In House) Negative (Negative)
[2022-01-21] MEDS ORDERED: Azithromycin 500 MG in 0.9 % Sodium Chloride 250 ML IVPB ONE (16:10)
[2022-01-21 16:34] LABS: Bilirubin,Urine Negative (Negative); Blood,Urine Negative (Negative); Clarity,Urine Clear (Clear); Color,Urine Yellow (Yellow); Glucose,Urine (UA) Normal (Normal); Ketones,Urine Trace mg/dL (Negative); Leukocyte Esterase,Urine Negative (Negative); Nitrite,Urine Negative (Negative); Protein,Urine 70 mg/dL (Neg-Trace); RBC,Urine 0-3 per hpf (0-3); Specific Gravity,Urine 1.028 (1.010-1.025); Urobilinogen,Urine Normal (Normal); WBC,Urine 0-3 per hpf (0-3)
[2022-01-21] MEDS ORDERED: 0.9 % Sodium Chloride 250 ML ONE (16:34)
[2022-01-21] MEDS ORDERED: *HR* Norepinephrine 4 MG/4 ML VIAL IVC ONE (16:34)
[2022-01-21] MEDS ORDERED: Iopamidol - 370 500 ML MLS IVP ONE (16:58)
[2022-01-21] MEDS ORDERED: Acetaminophen 325 MG TABLET PO PRN (17:39)
[2022-01-21] MEDS ORDERED: Naloxone 0.4 MG/ML INJ IVP PRN (17:39)
[2022-01-21] MEDS ORDERED: Albuterol 2.5 MG/3 ML NEBULIZER IH PRN (17:55)
[2022-01-21] MEDS ORDERED: Ondansetron 4 MG/2 ML VIAL IVP PRN (17:55)
[2022-01-21] MEDS: Norepinephrine 4 MG/254 ML IV.SOLN IVC SCH (17:59)
[2022-01-21] MEDS ORDERED: Vancomycin (wt based) 1,000 MG VIAL IVPB SCH (18:00)
[2022-01-21] MEDS: Albumin Human 5% 12.5 GM/250 ML IV.SOLN IVC SCH (18:20)
[2022-01-21] MEDS: Ipratropium/Albuterol Neb 3 ML IH SCH ×2 (20:15→23:51)
[2022-01-21 20:48] LABS: ABG Base Excess -2 mEq/L (-2 to 3); ABG HCO3 22 mEq/L (21-27); ABG Oxygen Saturation 99 % (95-98); ABG PCO2 33 mmHg (35-45); ABG PH 7.43 pH Units (7.32-7.45); ABG PO2 127 mmHg (85-104); ABG TCO2 23 mEq/L (20-26)
[2022-01-21] MEDS: MetroNIDAZOLE 500 MG/100 ML 500 MG/100 ML BAG IVPB SCH (20:50)
[2022-01-21] MEDS: Cefepime HCl 2,000 MG in 0.9 % Sodium Chloride 10 ML IVP SCH (20:51)
[2022-01-21 21:26] LABS: Alanine Aminotransferase 47 Units/L (7-52); Albumin 2.7 g/dL (3.5-5.7); Alkaline Phosphatase 121 Units/L (34-104); Aspartate Amino Transferase 93 Units/L (13-39); BUN/Creatinine Ratio 35 (6-26); Blood Urea Nitrogen 36 mg/dL (8-23); Calcium 7.7 mg/dL (8.6-10.3); Carbon Dioxide 23 mEq/L (23-29); Chloride 105 mEq/L (98-107); Globulin 2.6 g/dL (2.4-3.5); Glucose 104 mg/dL (70-105); Osmolality,Calculated 293 (280-300); Potassium 3.9 mEq/L (3.5-5.1); Sodium 137 mEq/L (136-145); Total Protein 5.3 g/dL (6.4-8.9); Troponin I 0.07 ng/mL (< 0.04); eGFR For African Americans > 60 (> 60); eGFR For Non-African Americans > 60 (> 60)
[2022-01-22 01:43] LABS: INR 2.4; Prothrombin Time 26.2 Seconds (9.4-12.1)
[2022-01-22 01:52] LABS: Alanine Aminotransferase 70 Units/L (7-52); Albumin 2.7 g/dL (3.5-5.7); Alkaline Phosphatase 127 Units/L (34-104); Aspartate Amino Transferase 141 Units/L (13-39); BUN/Creatinine Ratio 33 (6-26); Bilirubin,Direct 0.6 mg/dL (0.0-0.2); Bilirubin,Indirect 0.5 mg/dL (0.0-1.0); Bilirubin,Total 1.1 mg/dL (0.3-1.0); Blood Urea Nitrogen 35 mg/dL (8-23); Carbon Dioxide 25 mEq/L (23-29); Chloride 106 mEq/L (98-107); Globulin 2.8 g/dL (2.4-3.5); Glucose 104 mg/dL (70-105); Magnesium 1.9 mg/dL (1.6-2.6); Osmolality,Calculated 294 (280-300); Phosphorous 3.8 mg/dL (2.7-4.5); Potassium 4.5 mEq/L (3.5-5.1); Sodium 138 mEq/L (136-145); Total Protein 5.5 g/dL (6.4-8.9); eGFR For African Americans > 60 (> 60); eGFR For Non-African Americans > 60 (> 60)
[2022-01-22 02:44] LABS: Nucleated Red Blood Cells 0.6 /100 WBC (0)
[2022-01-22 02:45] LABS: Hematocrit 21.2 % (37.5-50.1); Hemoglobin 6.7 g/dL (12.9-16.9); Mean Corpuscular HGB Conc 31.6 g/dL (31.6-35.5); Mean Corpuscular Hemoglobin 33.3 pg (28.0-33.3); Mean Corpuscular Volume 105.5 fL (83.0-100.0); Mean Platelet Volume 10.5 fL (9.4-12.4); Red Blood Count 2.01 M/mcL (4.19-5.50); Red Cell Distribution Width 14.5 % (11.5-14.5); White Blood Count 4.9 K/mcL (4.3-11.1)
[2022-01-22] MEDS: Norepinephrine 4 MG/254 ML IV.SOLN IVC SCH (03:00)
[2022-01-22 03:07] LABS: Platelet Count 28 K/mcL (140-400)
[2022-01-22] MEDS: MetroNIDAZOLE 500 MG/100 ML 500 MG/100 ML BAG IVPB SCH ×3 (03:35→16:33)
[2022-01-22] MEDS: Ipratropium/Albuterol Neb 3 ML IH SCH ×5 (03:52→20:15)
[2022-01-22] MEDS ORDERED: 0.9 % Sodium Chloride 250 ML ONE (05:25)
[2022-01-22 06:23] LABS: Lymphocytes # 0.6 K/mcL (0.6-4.6); Monocytes # 0.1 K/mcL (0.0-1.3); Neutrophils # 4.2 K/mcL (1.6-8.9); Platelet Estimate Marked Decrease (Normal)
[2022-01-22] MEDS: Cefepime HCl 2,000 MG in 0.9 % Sodium Chloride 10 ML IVP SCH ×2 (06:46→18:29)
[2022-01-22] MEDS: Pantoprazole 40 MG VIAL IVP SCH (08:39)
[2022-01-22 11:15] LABS: Hematocrit 27.3 % (37.5-50.1)
[2022-01-22 11:16] LABS: Hemoglobin 8.7 g/dL (12.9-16.9)
[2022-01-22] MEDS ORDERED: *HR* HYDROcodone/Acet 5/325 mg TABLET PO PRN (13:50)
[2022-01-22] MEDS ORDERED: NON-FORMULARY MEDICATION 1 EACH EACH (Pantoprazole Sodium [Protonix] 40 MG Tablet.Dr) PO SCH (16:00)
[2022-01-22] MEDS: Baclofen 10 MG TABLET PO SCH (19:59)
[2022-01-22] MEDS: Gabapentin 300 MG CAPSULE PO SCH (19:59)
[2022-01-23] MEDS: Ipratropium/Albuterol Neb 3 ML IH SCH ×6 (00:16→20:14)
[2022-01-23] MEDS: MetroNIDAZOLE 500 MG/100 ML 500 MG/100 ML BAG IVPB SCH ×3 (02:58→18:24)
[2022-01-23 03:37] LABS: Hematocrit 26.6 % (37.5-50.1); Hemoglobin 8.5 g/dL (12.9-16.9); Immature Platelets 4.1 % (1.1-6.1); Mean Corpuscular Hemoglobin 31.7 pg (28.0-33.3); Mean Corpuscular Volume 99.3 fL (83.0-100.0); Mean Platelet Volume 10.6 fL (9.4-12.4); Monocytes # 0.3 K/mcL (0.0-1.3); Nucleated Red Blood Cells 0.9 /100 WBC (0); Red Blood Count 2.68 M/mcL (4.19-5.50); Red Cell Distribution Width 17.9 % (11.5-14.5); White Blood Count 6.5 K/mcL (4.3-11.1)
[2022-01-23 03:41] LABS: INR 1.6; Prothrombin Time 17.3 Seconds (9.4-12.1)
[2022-01-23 03:51] LABS: Platelet Count 80 K/mcL (140-400)
[2022-01-23 04:09] LABS: Lymphocytes # 0.7 K/mcL (0.6-4.6); Neutrophils # 5.6 K/mcL (1.6-8.9); Platelet Estimate Decreased (Normal)
[2022-01-23 04:16] LABS: Alanine Aminotransferase 71 Units/L (7-52); Albumin 2.7 g/dL (3.5-5.7); Albumin/Globulin Ratio 0.9 (1.1-2.2); Alkaline Phosphatase 125 Units/L (34-104); Aspartate Amino Transferase 94 Units/L (13-39); BUN/Creatinine Ratio 27 (6-26); Bilirubin,Direct 0.5 mg/dL (0.0-0.2); Bilirubin,Indirect 0.6 mg/dL (0.0-1.0); Bilirubin,Total 1.1 mg/dL (0.3-1.0); Blood Urea Nitrogen 22 mg/dL (8-23); Carbon Dioxide 25 mEq/L (23-29); Chloride 108 mEq/L (98-107); Glucose 101 mg/dL (70-105); Magnesium 2.2 mg/dL (1.6-2.6); Osmolality,Calculated 293 (280-300); Phosphorous 1.9 mg/dL (2.7-4.5); Potassium 3.1 mEq/L (3.5-5.1); Sodium 140 mEq/L (136-145); Total Protein 5.7 g/dL (6.4-8.9); Vancomycin,Trough 19 mcg/mL (5-10); eGFR For African Americans > 60 (> 60); eGFR For Non-African Americans > 60 (> 60)
[2022-01-23] MEDS: Cefepime HCl 2,000 MG in 0.9 % Sodium Chloride 10 ML IVP SCH ×2 (06:10→18:21)
[2022-01-23] MEDS ORDERED: Potassium Chloride Elixir 20 MEQ/15 ML UDC PO ONE (06:30)
[2022-01-23] MEDS: Gabapentin 300 MG CAPSULE PO SCH ×3 (08:02→21:15)
[2022-01-23] MEDS: Baclofen 10 MG TABLET PO SCH ×2 (08:03→21:13)
[2022-01-23] MEDS: Pantoprazole 40 MG VIAL IVP SCH (08:03)
[2022-01-23] MEDS: ALPRAZolam 0.25 MG TABLET PO SCH (21:13)
[2022-01-24] MEDS: Ipratropium/Albuterol Neb 3 ML IH SCH ×6 (00:03→19:36)
[2022-01-24 00:39] LABS: Basophils % 0.3 %; Hematocrit 29.6 % (37.5-50.1); Hemoglobin 9.5 g/dL (12.9-16.9); Mean Corpuscular HGB Conc 32.1 g/dL (31.6-35.5); Mean Corpuscular Hemoglobin 32.3 pg (28.0-33.3); Mean Corpuscular Volume 100.7 fL (83.0-100.0); Mean Platelet Volume 10.3 fL (9.4-12.4); Red Blood Count 2.94 M/mcL (4.19-5.50)
[2022-01-24 00:40] LABS: Eosinophils % 0.1 %; Immature Granulocytes % 1.3 % (0-4); Lymphocytes # 0.6 K/mcL (0.6-4.6); Lymphocytes % 8.1 %; Monocytes # 0.4 K/mcL (0.0-1.3); Monocytes % 5.4 %; Neutrophils # 6.4 K/mcL (1.6-8.9); Nucleated Red Blood Cells 1.2 /100 WBC (0); Red Cell Distribution Width 17.7 % (11.5-14.5); Segmented Neutrophils % 84.8 %; White Blood Count 7.5 K/mcL (4.3-11.1)
[2022-01-24 00:42] LABS: Platelet Count 85 K/mcL (140-400)
[2022-01-24 00:46] LABS: INR 1.8; Prothrombin Time 19.9 Seconds (9.4-12.1)
[2022-01-24 00:51] LABS: % Iron Saturation 29 % (20-55); Alanine Aminotransferase 56 Units/L (7-52); Albumin 2.5 g/dL (3.5-5.7); Albumin/Globulin Ratio 0.8 (1.1-2.2); Alkaline Phosphatase 122 Units/L (34-104); Aspartate Amino Transferase 57 Units/L (13-39); BUN/Creatinine Ratio 24 (6-26); Bilirubin,Direct 0.4 mg/dL (0.0-0.2); Bilirubin,Indirect 0.5 mg/dL (0.0-1.0); Bilirubin,Total 0.9 mg/dL (0.3-1.0); Blood Urea Nitrogen 18 mg/dL (8-23); Calcium 7.9 mg/dL (8.6-10.3); Carbon Dioxide 25 mEq/L (23-29); Chloride 108 mEq/L (98-107); Globulin 3.2 g/dL (2.4-3.5); Glucose 94 mg/dL (70-105); Iron 43 mcg/dL (65-175); Magnesium 1.9 mg/dL (1.6-2.6); Osmolality,Calculated 294 (280-300); Phosphorous 1.7 mg/dL (2.7-4.5); Potassium 3.4 mEq/L (3.5-5.1); Sodium 141 mEq/L (136-145); Total Protein 5.7 g/dL (6.4-8.9); Transferrin 107 mg/dL (203-362); eGFR For African Americans > 60 (> 60); eGFR For Non-African Americans > 60 (> 60)
[2022-01-24 01:11] LABS: Ferritin > 1500 ng/mL (20-250)
[2022-01-24 01:31] LABS: Platelet Estimate Decreased (Normal)
[2022-01-24] MEDS: MetroNIDAZOLE 500 MG/100 ML 500 MG/100 ML BAG IVPB SCH ×3 (04:26→13:41)
[2022-01-24] MEDS: Albumin Human 5% 12.5 GM/250 ML IV.SOLN IVC SCH (07:10)
[2022-01-24] MEDS: Gabapentin 300 MG CAPSULE PO SCH ×3 (08:10→12:59)
[2022-01-24] MEDS: ALPRAZolam 0.25 MG TABLET PO SCH ×2 (08:10→09:08)
[2022-01-24] MEDS: Baclofen 10 MG TABLET PO SCH ×2 (08:10→09:08)
[2022-01-24] MEDS: Aspirin Enteric Coated 81 MG Tablet PO SCH ×2 (08:10→09:08)
[2022-01-24] MEDS: Pantoprazole 40 MG VIAL IVP SCH (08:10)
[2022-01-24] MEDS: Cefepime HCl 2,000 MG in 0.9 % Sodium Chloride 10 ML IVP SCH (08:10)
[2022-01-24] MEDS ORDERED: D5% in Water 1,000 ML IVC PRN (08:37)
[2022-01-24] MEDS ORDERED: Dextrose Gel 15 GM/37.5 ML TUBE PO PRN ×2 (08:37)
[2022-01-24] MEDS ORDERED: *HR* Dextrose 50 % in Water (Syg) 50 ML SYRINGE IVP STA (08:38)
[2022-01-24] MEDS: *HR* Dextrose 50 % in Water (Syg) 50 ML SYRINGE IVP PRN ×2 (08:48→11:40)
[2022-01-24 11:44] LABS: Thyroid Stimulating Hormone 3.643 mcIU/mL (0.340-5.600); Troponin I 0.05 ng/mL (< 0.04)
[2022-01-24] MEDS: Ringers Solution, Lactated 1,000 ML ONE ×2 (11:50→11:52)
[2022-01-24 11:55] LABS: Adenovirus Not Detected (Not Detect); Coronavirus 229E Not Detected (Not Detect); Coronavirus HKU1 Not Detected (Not Detect); Coronavirus NL63 Not Detected (Not Detect); Coronavirus OC43 Not Detected (Not Detect); Human Metapneumovirus Not Detected (Not Detect); Human Rhinovirus/Enterovirus Not Detected (Not Detect); SARS-CoV-2 Not Detected (Not Detect)
[2022-01-24 11:56] LABS: Bordetella Pertussis Not Detected (Not Detect); Chlamydophila pneumoniae Not Detected (Not Detect); Influenza A Subtype 2009 H1 Not Detected (Not Detect); Influenza B Not Detected (Not Detect); Mycoplasma pneumoniae Not Detected (Not Detect); Parainfluenza Virus 1 Not Detected (Not Detect); Parainfluenza Virus 2 Not Detected (Not Detect); Parainfluenza Virus 3 Not Detected (Not Detect); Parainfluenza Virus 4 Not Detected (Not Detect); Respiratory Syncytial Virus Not Detected (Not Detect)
[2022-01-24] MEDS ORDERED: Ringers Solution, Lactated 500 ML IVC ONE (12:00)
[2022-01-24] MEDS: Morphine Sulfate Oral CONC 10 MG/0.5 ML ORAL.SYG SL PRN ×2 (14:46→23:28)
[2022-01-24] MEDS: *HR* LORazepam Oral Conc 2 MG/ML PO PRN (16:15)
[2022-01-24] MEDS: Haloperidol Oral Conc 10 MG/5 ML UDC PO PRN ×2 (16:48→23:26)
[2022-01-25] MEDS: *HR* LORazepam Oral Conc 2 MG/ML PO PRN ×2 (01:33→06:07)
[2022-01-25] MEDS: Ipratropium/Albuterol Neb 3 ML IH SCH ×3 (01:39→07:36)
[2022-01-25 04:34] VITALS: BP 93/56; PULSE 96; TEMP 97.5; O2SAT 87
[2022-01-25] MEDS: Haloperidol Oral Conc 10 MG/5 ML UDC PO PRN (04:39)
[2022-01-25] MEDS ORDERED: Atropine Sulfate 1% 40 DROP/2 ML BOTTLE SL PRN (04:42)
[2022-01-25] MEDS: Morphine Sulfate Oral CONC 10 MG/0.5 ML ORAL.SYG SL PRN ×2 (05:05→09:12)
[2022-01-25] MEDS ORDERED: Haloperidol Lactate 5 MG/ML VIAL IVP ONE (06:43)
[2022-01-25] MEDS ORDERED: *HR* LORazepam 2 MG/ML VIAL IVP STA (07:41)
[2022-01-25] MEDS: Pantoprazole 40 MG VIAL IVP SCH (07:54)
[2022-01-25] MEDS ORDERED: Morphine Sulfate 2 MG/ML SYRINGE IVP ONE (09:46)
== END 2022-01-25 10:50 | disposition hospice, inpatient (51) | DRG 871 ==
LOC: ICNU 12:48 → EMEROOARM 12:48 → ICNU 17:49 → SUATTDRO 19:49 → 2ANU 01-23 10:50
PROVIDERS: ADMIT Pediatrics; ATTEND Student in an Organized Health Care Education/Training Program

== ENCOUNTER 2022-01-25 09:45 | Inpatient (IN) ==
[2022-01-25] MEDS ORDERED: Bisacodyl 10 MG RECTAL SUPPOSITORY RC PRN (09:50)
[2022-01-25] MEDS ORDERED: *HR* LORazepam 2 MG/ML VIAL IVP PRN (09:50)
[2022-01-25] MEDS ORDERED: Glycopyrrolate 0.2 MG/ML VIAL IVP PRN (09:53)
[2022-01-25] MEDS ORDERED: Acetaminophen 650 MG RECTAL SUPP RC PRN (09:54)
[2022-01-25] MEDS ORDERED: *HR* HYDROmorphone 2 MG/ML SYRINGE IVP PRN (09:56)
[2022-01-25] MEDS ORDERED: Haloperidol Lactate 5 MG/ML VIAL IVP SCH (12:00)
[2022-01-25] MEDS ORDERED: Morphine Sulfate Oral CONC 10 MG/0.5 ML ORAL.SYG SL SCH (12:00)
[2022-01-25 12:07] VITALS: PULSE 82; TEMP 98.5; O2SAT 82
== END 2022-01-25 16:30 | disposition expired | DRG 951 ==
LOC: 2ANU 11:11
PROVIDERS: ADMIT Internal Medicine Hospice and Palliative Medicine; ATTEND Internal Medicine Hospice and Palliative Medicine